=== PATIENT | female | born 1975 | race Caucasian/White ===

== ENCOUNTER 2017-07-17 15:59 | Emergency (ER) | payer OTHER ==
[~2017-07-17] VITALS: Ht 154.9 cm; Wt 69.3 kg
[2017-07-17 16:10] VITALS: TEMP 36.7; Ht 154.9 cm; Wt 69.3 kg
[2017-07-17] MEDS ORDERED: XYLOCAINE 1%/SOD BICARB 20 ML VIAL INFIL ONE (16:27)
[2017-07-17] MEDS ORDERED: CHOL1000 PO (17:01)
--- NOTE | 2017-07-17 17:07 | DIAGNOSTIC IMAGING REPORT ---
L FINGER(S) MIN 2 VIEWS ROUTINE CLINICAL HISTORY: left 5th finger crush injury trauma. Pain. COMPARISON: None. DISCUSSION: Soft tissue edema. Small avulsion tip distal phalanx. No evidence of dislocation. IMPRESSION: Small avulsion tip distal phalanx. Soft tissue edema. The above report was generated using voice recognition software. It may contain grammatical, syntax or spelling errors. Electronically signed by: Mina Reynaga M.D. 07/17/2017 5:06 PM Dictated Date/Time: 07/17/2017 5:05 PM
[2017-07-17] MEDS ORDERED: CEPHALEXIN MONOHYDRATE 250 MG CAP PO ONE (17:30)
[2017-07-17] MEDS ORDERED: CEPHALEXIN 500MG HOME PACK 1 EA BTL PO ONE (17:30)
[2017-07-17 17:55] VITALS: BP 115/73; PULSE 79; O2SAT 99
[2017-07-17] MEDS ORDERED: CEPH500C PO (18:02)
--- NOTE | 2017-07-17 21:33 | EMERGENCY ROOM VISIT NOTE ---
History First contact with patient: 16:19 Chief Complaint: LACERATION/CUT (SUT/DERMABOND) Stated Complaint: INJURED LEFT HAND, 5TH DIGIT History of Present Illness The patient is a 42 year old female who presents to the Emergency Room with complaints of injury to her left fifth digit. The patient states that she was helping move wood this afternoon, and she was handed a large metal pipe unexpectedly. She estimates this weighed about 20 pounds. She states that she essentially drop this onto the distal end of the left fifth finger, causing a crush type injury. She did have immediate bleeding. The patient states that she is up-to-date on her tetanus. She does not take blood thinners. She is able to open and close the hand. She has pain at the distal tip, and rates the discomfort a 7/10. She has not taken anything for her discomfort. No previous injury. Review of Systems More than 10 systems were reviewed and otherwise negative with the exception of history of present illness. Past Medical/Surgical History No chronic medical disease Family History No pertinent family history Social History Smoking Status: Never Smoker Occupation Status: employed Current/Historical Medications Scheduled Cephalexin Monohydrate (Keflex), 500 MG PO TID Cholecalciferol (Vitamin D3), 500 UNITS PO DAILY Physical Exam Vital Signs Date Time Temp Pulse Resp B/P (MAP) Pulse Ox O2 Delivery O2 Flow Rate FiO2 07/17/17 17:55 79 18 115/73 99 Room Air 07/17/17 16:10 36.7 80 20 108/74 95 Room Air Physical Exam VITALS: Vitals are noted on the nurse's note and reviewed by myself. Vital signs stable. GENERAL: Well-developed, well-nourished, white female, who is in no acute distress and resting comfortably. Patient is cooperative with the examination. HEART: Regular rate and rhythm without murmurs gallops or rubs. LUNGS: Clear to auscultation bilaterally without wheezes, rales or rhonchi. No retractions or accessory muscle use. MUSCULOSKELETAL: There is appreciated injury to the distal and of the left fifth finger. The proximal fingernail is lifted above the cuticle, while the distal end is still attached. There is not appear to be significant laceration. The patient is able to make the okay sign. She is able to touch her thumb to all of her fingers. Railroad Inspector strength is 4/5. There is noted blood coming from underneath the fingernail. NEURO: Patient was alert and oriented to person place and time. CN II through XII grossly intact. Medical Decision & Procedures ER Provider Diagnostic Interpretation: L FINGER(S) MIN 2 VIEWS ROUTINE CLINICAL HISTORY: left 5th finger crush injury trauma. Pain. COMPARISON: None. DISCUSSION: Soft tissue edema. Small avulsion tip distal phalanx. No evidence of dislocation. IMPRESSION: Small avulsion tip distal phalanx. Soft tissue edema. Medications Administered Medications (Trade) Dose Ordered Sig/Chelsy Route Start Time Stop Time Status Last Admin Dose Admin Cephalexin Monohydrate (Keflex 500MG Home Pack) 1 homepack NOW ONCE PO 07/17/17 17:30 07/17/17 17:31 DC 07/17/17 17:54 1 HOMEPACK Cephalexin Monohydrate (Keflex Cap) 500 mg NOW ONCE PO 07/17/17 17:30 07/17/17 17:31 DC 07/17/17 17:55 500 MG Procedure Laceration repair. Patient elects to have their laceration repaired. Verbal consent was obtained to perform the procedure. There is an abundance of materials available for the procedure. Patient is not allergic to latex. Using sterile technique the wound was cleaned with Betadine. The area was sterilely draped. 5 ml of 1% buffered lidocaine was used to anesthetize the left 5th finger in a digital block fashion. Once the patient was anesthetized, the wound was copiously irrigated under pressure with greater than one liter sterile saline. The wound was explored and there were no obvious deep structure injuries. There is a small 4 mm nailbed laceration that was repaired with a single simple interrupted 6-0 Vicryl suture. The fingernail was removed as the proximal portion was elevated above the cuticle. The fingernail was cleansed and trimmed. He was placed back into an anatomical position. It was sutured into place utilizing 4 simple interrupted 5-0 nylon sutures. This did achieve hemostasis. The area was cleaned with sterile saline and dressed with bacitracin ointment and bandage. Patient tolerated the procedure well without complications. Blood loss was negligible. ED Course Physical exam and history were performed. Nursing notes, EMR, and Medication List were personally reviewed. Patient appears to have suffered a crush type injury to the distal end of her left fifth finger. X-ray was obtained and does show an underlying fracture. The patient wound was repaired as above. The fingernail was removed and tacked into anatomical position. An additional stitch was placed to help with the fingernail bed. Technically this is considered to be an open fracture. I discussed the case with my attending physician and with the patient. Evidently the patient was planning to travel for work in about 9 hours. She was going to be gone for several days. I thoroughly explained to the medical necessity of following with orthopedics in 36-48 hours, and recommended against travel due to the risk of infection. The patient understands, and will make additional arrangements for her travel. She will need to follow with [facility] orthopedics Wednesday, and is very comfortable with this plan. She was given Keflex here in the department as well as a continuation prescription. If she has any complication she is to return to the ER with any concerns. The chart was completed utilizing [employer] Speech Voice Recognition Software. Grammatical errors, random word insertions, pronoun errors, and incomplete sentences are an occasional consequence of this system due to software limitations, ambient noise, and hardware issues. Any formal questions or concerns about the content, text, or information contained within the body of this dictation should be directly addressed to the provider for clarification. . Medical Decision Differential diagnosis includes, but is not limited to: Sprain, strain, fracture , dislocation, subluxation, contusion, and others Impression Primary Impression: Open fracture of finger, distal phalanx Departure Information Dispostion Home / Self-Care Condition GOOD Prescriptions Cephalexin Monohydrate (Keflex) 500 Mg Cap 500 MG PO TID for 7 Days, #21 CAP Prov: Benedict Javier PA-C 07/17/17 Referrals Latisha Vargas DO (PCP) No Doctor, Assigned Mars Addison M.D. Forms HOME CARE DOCUMENTATION FORM, Work Instructions, Additional Instructions: Patient was seen and evaluated today in the emergency department fo medical care. It is medically necessary to follow-up with Orthopedics o 07/19/2017 for a complicated injury. Please excuse. IMPORTANT VISIT INFORMATION Patient Instructions My [facility], ED Fx Finger Open, ED Laceration All Additional Instructions You were seen and evaluated today on an emergency basis only. This is not a substitute for, or an effort to provide, complete comprehensive medical care. It is not possible to recognize and treat all injuries or illnesses in a single emergency department visit. For this reason it is recommended that you followup with [facility] orthopedics, Dr. Addison's office, on Wednesday for a recheck. Call at 8 AM Wednesday morning and let them know you were seen in the ER to help make the appointment. For baseline pain relief you may alternate ibuprofen and acetaminophen every 4 hours for pain control. Take 600 mg ibuprofen (Advil) and then 4 hours later take 1000 mg acetaminophen (Tylenol). Do not take more than 3000 mg acetaminophen in a single day. Cephalexin(Keflex) 500mg: Take one pill 3 times daily for 7 days to prevent infection. All antibiotics can cause diarrhea. If this occurs and you feel worse or it does not resolve in 1-2 days follow up with your doctor or return to the Emergency Department as this could be signs of serious underlying problems. Any medication can cause an allergic reaction, stop the pills immediately and return to the ER for rash, hives, breathing difficulties, or swelling. Applying antibiotic ointment like bacitracin and a dressing twice daily until seen by orthopedics. Keep wound clean and dry. Do not allow any crusting or dried blood to accumulate on sutures. If this occurs, use a mild soap/water on a Q-tip to clean the wound. Do not use Peroxide to clean the wound as this can delay healing Use an antibiotic ointment like Bacitracin for 3-4 days, then let wound dry. You may bathe and shower as normal, but DO NOT SOAK the wound. Suture removal in about 12-14 days with your Family Doctor or in the ER. (Orthopedics may change this plan as appropriate) Return sooner for any signs of infection, increasing redness, swelling, or drainage. You are welcome to return to the emergency department anytime with new, worsening, or concerning symptoms. Work Instructions Additional Work Instructions: Patient was seen and evaluated today in the emergency department for medical care. It is medically necessary to follow-up with Orthopedics on 07/19/2017 for a complicated injury. Please excuse.
== END 2017-07-17 18:12 | disposition home or self-care (01) ==
LOC: C.EDB 16:00 → C.EDD 18:12
DX: S62.667B Nondisplaced fracture of distal phalanx of left little finger, initial encounter for open fracture (principal); W23.0XXA Caught, crushed, jammed, or pinched between moving objects, initial encounter; Y93.89 Activity, other specified

== ENCOUNTER → 2017-09-03 | Outpatient (CLI) | payer OTHER ==
[~2017-09-03] MED LIST: CHOL1000 PO
--- NOTE | 2017-09-03 15:21 | DIAGNOSTIC IMAGING REPORT ---
L FINGER(S) MIN 2 VIEWS HISTORY: 42 years-old Female F/U LEFT 5TH FINGER FRACTURE follow-up study to assess fracture of the left fifth finger COMPARISON: Finger radiographs 07/17/2017 TECHNIQUE: 3 views of the left fifth finger FINDINGS: Healing of the subtle subacute appearing distal phalangeal tuft fracture, best seen on the oblique film. Alignment is unchanged from comparison without additional acute fracture, dislocation or significant degenerative changes. No opaque foreign body. Soft tissues are within normal limits. IMPRESSION: Healing subacute fracture of the fifth distal phalangeal tuft with unchanged alignment. The above report was generated using voice recognition software. It may contain grammatical, syntax or spelling errors. Electronically signed by: Valdez Jimenes M.D. 09/03/2017 3:19 PM Dictated Date/Time: 09/03/2017 3:18 PM
== END | disposition home or self-care (01) ==
LOC: C.RDSM 19:34
PROVIDERS: ATTEND Physician Assistant
DX: S62.602D Fracture of unspecified phalanx of right middle finger, subsequent encounter for fracture with routine healing (principal); X58.XXXD Exposure to other specified factors, subsequent encounter